=== PATIENT | female | born 1995 | race Caucasian/White ===

== ENCOUNTER 2019-10-14 15:06 | Emergency (ER) | payer SELFPAY ==
[2019-10-14 15:08] VITALS: BP 133/72; PULSE 118; RESP 18; TEMP 36.7; O2SAT 98; BMI 23.8
[2019-10-14 15:41] LABS: Bacteria 0 SEEN /hpf (None Seen); Mucous, Urine 0 SEEN /hpf (<or=2+); Red Blood Cells-Urine 0 SEEN /hpf (0-5)
[2019-10-14 15:45] LABS: Color, Urine Yellow (Yellow); Glucose, Dipstick Normal (Normal); Ketone-Dipstick Negative (Negative); Leukocyte Esterase-Dipstick Negative /ul (Negative); Nitrite-Dipstick Negative (Negative); Occult Blood-Urine Negative /ul (Negative); Protein-Dipstick Negative (Negative); Urine Bilirubin Dipstick Negative (Negative); Urine Clarity Clear (Clear); Urine Urobilinogen Normal (Normal)
[2019-10-14 16:00] LABS: Squamous Epithelial Cells - UA 0-5 SEEN /hpf (5-10); White Blood Cells 0-5 SEEN /hpf (0-5)
--- NOTE | 2019-10-14 16:02 | ED.RN ---
PATIENT STATES THAT SHE HAS TO LEAVE. THIS NURSE ENCOURAGED THE PATIENT TO STAY AND PATIENT STATES SHE HAD A FAMILY EMERGENCY. MD NOTIFIED PATIENT LEFT ED.
--- NOTE | 2019-10-14 16:19 | ED.DCSUM_ITS ---
History of Present Illness Chief Complaint: Complaint Informant: Patient Narrative: Patient presenting for evaluation secondary to dysuria. Patient states that she has been having burning when she urinates over the course of the last 3 to 4 days. She reports that she feels that it may be started after she was in a [place]. Patient was concerned because her boyfriend is having similar symptoms. She denies any vaginal bleeding or discharge. She denies any pelvic pain. She denies any flank pain. Patient denies any fevers nausea or vomiting. Patient states that the pain really is only present when she urinates. Patient does report that she had a past history of an STI. She reports that she does not think that she is although she is sexually active and does not use control. Review of systems otherwise negative. Past Medical History - Allergies and Home Meds Allergies/Adverse Reactions: Allergies amoxicillin [Amoxicillin] Allergy (Verified 10/14/19 15:10) Swelling Primary Care Physician: Care Physician,No Primary [Primary Care Provider] - Prior records reviewed: Yes Past Medical History: None Smoking Status: Current every day smoker Alcohol: None Drugs: None Review of Systems All systems negative except as indicated General: Denies: Chills, Fever, Sweats Eyes: Denies: Visual changes - bilaterally, Diplopia ENT: Denies: Rhinorrhea, Sore throat Cardiovascular: Denies: Chest pain, Palpitations Respiratory: Denies: Dyspnea, Cough, Dyspnea on exertion Gastrointestinal: Denies: Abdominal pain, Nausea, Vomiting, Diarrhea, Melena, Hematochezia Genitourinary: Reports: Dysuria Musculoskeletal: Denies: Back pain, Extremity Pain Skin: Denies: Rash, Wounds Neurological: Denies: Headache, Weakness, Numbness Physical Exam Vital Signs/Narrative: Vital Signs Temp Pulse Resp BP Pulse Ox 10/14/19 15:08 98.1 F 118 H 18 133/72 H 98 Inital Vital Signs reviewed: Yes General: Well nourished, Well developed Head: Normocephalic, Atraumatic Eyes: Perrl, EOMI ENT: Moist mucous membranes, No rhinorrhea Neck: Supple, Nontender Cardiovascular: Regular rhythm, No murmurs, Tachycardia Respiratory: No distress, CTA bilaterally, Chest nontender Abdomen: Soft, Nontender, Nondistended, Normal bowel sounds Back: Nontender, Normal Inspection Extremities: Nontender, No edema Skin: Normal color, No rash Neurological: Alert, Oriented x3, Cranial nerves II-XII grossly intact, Normal Strength, Normal Sensation Psychological: Normal affect Diagnostic/Tx/Re-eval Laboratory Data 10/14/19 15:37 Urine Color Yellow Urine Clarity Clear Urine pH 6.0 Ur Specific [place] 1.020 Urine Protein Negative Urine Glucose (UA) Normal Urine Ketones Negative Urine Occult Blood Negative Urine Nitrite Negative Urine Bilirubin Negative Urine Urobilinogen Normal Ur Leukocyte Esterase Negative Urine RBC 0 SEEN Urine WBC 0-5 SEEN Ur Squamous Epith Cells 0-5 SEEN Urine Bacteria 0 SEEN Urine Mucus 0 SEEN - Medical Decision/Diagnostic Studies Patient presented secondary to a sensation of vaginal burning. She has benign physical exam other than some mild tachycardia. Urinalysis was found to be negative, urine was sent for GC and chlamydia. I informed the patient that as both she and her boyfriend are having similar symptoms, this potentially could be associated with a sexually transmitted infection and I recommended a pelvic exam. Prior to being able to perform the pelvic exam I saw the patient leaving the emergency department, and she informed me my mom has an emergency. Patient eloped from the emergency department prior to the completion of her work-up. ED Disposition - Plan for ED Patient: Disposition: Against Medical Advice Diagnosis: Dysuria Referrals: Care Physician,No Primary [Primary Care Provider] -
[2019-10-14 17:51] LABS: Chlamydia Trachomatis by PCR Negative (Negative); Neisserai gonorrhoeae by PCR Negative (Negative); Probe Check PASS; Sample Adequacy Control PASS; Specimen Processing Control PASS
== END 2019-10-14 16:02 | disposition left against medical advice (07) ==
LOC: ED 16:14
PROVIDERS: Emergency Provider Emergency Medicine
DX: R30.0 Dysuria (principal); F17.200 Nicotine dependence, unspecified, uncomplicated; Z53.29 Procedure and treatment not carried out because of patient's decision for other reasons
CPT/HCPCS: 81001; 87491; 87591; 99281; 99282

== ENCOUNTER 2019-12-19 14:28 | Emergency (ER) | payer SELFPAY ==
[2019-12-19 14:30] VITALS: BP 147/100; PULSE 99; RESP 16; TEMP 36.7; O2SAT 100; BMI 25.0
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
[2019-12-19] MEDS: Ibuprofen 600 MG Tablet PO (15:08)
[2019-12-19] MEDS: Dicyclomine 10 MG Capsule 20 MG PO (15:09)
[2019-12-19 15:15] LABS: Bacteria 0 SEEN /hpf (None Seen); Mucous, Urine 0 SEEN /hpf (<or=2+); Red Blood Cells-Urine 0 SEEN /hpf (0-5); Squamous Epithelial Cells - UA 0 SEEN /hpf (5-10); White Blood Cells 0 SEEN /hpf (0-5)
[2019-12-19 15:19] LABS: Color, Urine Yellow (Yellow); Glucose, Dipstick Normal (Normal); Ketone-Dipstick Negative (Negative); Leukocyte Esterase-Dipstick Negative /ul (Negative); Nitrite-Dipstick Negative (Negative); Occult Blood-Urine Negative /ul (Negative); Protein-Dipstick Negative (Negative); Urine Bilirubin Dipstick Negative (Negative); Urine Clarity Clear (Clear); Urine Urobilinogen Normal (Normal)
[2019-12-19 15:23] LABS: Internal QC Validated? YES +Cl - CLEAR BKGD; Pregnancy, Urine Negative Negative
== END 2019-12-19 15:11 | disposition home or self-care (01) ==
PROVIDERS: Emergency Provider Emergency Medicine
DX: R10.30 Lower abdominal pain, unspecified (principal); N92.6 Irregular menstruation, unspecified; F17.200 Nicotine dependence, unspecified, uncomplicated
CPT/HCPCS: 81001; 81025

== ENCOUNTER 2020-11-01 17:45 | Outpatient (REF) | payer SELFPAY ==
[2020-11-01 17:46] VITALS: BP 138/90; PULSE 96; RESP 16; TEMP 36.5; O2SAT 99; BMI 27.6
--- NOTE | 2020-11-01 17:55 | EKG12_ITS ---
Test Reason : Blood Pressure : / mmHG Vent. Rate : 090 BPM Atrial Rate : 090 BPM P-R Int : 132 ms QRS Dur : 088 ms QT Int : 362 ms P-R-T Axes : 056 054 047 degrees QTc Int : 442 ms Normal sinus rhythm Normal ECG Confirmed by ELVIN HAN, ANA ([id number]), news copy editor VAN GUERRERO ([id number]) on 11/02/2020 11:23:32 AM Referred By: [facility] Confirmed By:ANA OCONNOR MD
--- NOTE | 2020-11-01 17:55 | RAD_ITS ---
INDICATION: ingestion of razor blade EXAMINATION/TECHNIQUE: X-RAY - XR Chest 1 View COMPARISON: None. FINDINGS: The lungs are clear. The cardiomediastinal silhouette is unremarkable. No pleural effusion or pneumothorax. No acute osseous abnormalities. RAD/Chest 1 View (Portable) IMPRESSION: No radiodense foreign bodies seen. Electronically Signed: Bobby Franco MD at 18:56 EDT Tel , Service support ,
--- NOTE | 2020-11-01 17:55 | EX.ED.DYSGE1 ---
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 She states she did not wrap it in anything. She did this as a suicide attempt. She states that she is depressed and feels alone. She is currently in the custody of the [facility]'s department. PFSH PFS Home Medications No Known/Unobtainable [No Known Home Medications] 09/30/13 [History Last Taken Unknown] Allergy/AdvReac Type Severity Reaction Status Date / Time amoxicillin [Amoxicillin] Allergy Swelling Verified 11/01/20 17:46 Social History (Updated 11/01/20 @ 17:[address] Maxim Domínguez, DO) Smoking Status: Current every day smoker tobacco type: cigarettes substance use type: does not use ROS ROS ED Constitutional Constitutional ED: Denies chills or weight loss Eyes Eyes: Denies change in vision or diplopia ENT ENT ED: Denies ear pain, rhinorrhea or sore throat Cardiovascular Cardiovascular: Denies chest pain, orthopnea, palpitations or racing heartbeat Respiratory/Chest Respiratory/Chest: Denies cough, dyspnea or orthopnea Gastrointestinal Gastrointestinal: Denies abdominal pain, diarrhea, nausea or vomiting Genitourinary Genitourinary ED: Denies dysuria, hematuria or urinary frequency Musculoskeletal Musculoskeletal: Denies arthralgias or myalgias Integumentary Denies abscess or rash Neurologic Neurologic: Denies headache(s) or weakness Psychiatric Psychiatric: Reports depression, hopelessness, suicidal ideation and suicidal thoughts; Denies anxiety, auditory hallucinations, hallucinations or homicidal ideation Endocrine Endocrinology: Denies polydipsia, polyphagia or polyuria Allergic/Immunologic Allergic/Immunologic ED: Denies mouth swelling, tongue swelling or urticaria EXAM Physical Exam Const Vital Signs: 11/01/20 17:46 Temperature 97.7 F L Temperature Source Temporal Pulse Rate 96 Respiratory Rate 16 Blood Pressure 138/90 H Blood Pressure Mean 106 Pulse Ox 99 Oxygen Delivery Method Room Air Positive well nourished and well developed General Appearance ED: well developed HEENT Reports normocephalic, head/scalp atraumatic and moist mucous membranes Eyes PERRL and EOMs intact bilaterally Neck no lymphadenopathy, supple and no JVD Resp normal respiratory effort and clear to auscultation bilaterally Cardio regular rate, regular rhythm and no murmurs GI normal to inspection, nondistended, normoactive bowel sounds and non-tender Palpation: soft Back/Spine no CVA tenderness and normal ROM Extremity normal to inspection General Extremety ED: Negative for edema General Extremity: Negative for edema Neuro oriented x3 and CN's II-XII intact bilaterally Sensorium / Orientation: alert Motor Exam: strength 5/5 throughout Psych mental status grossly normal Psych Narrative: Patient admits to suicidal ideation Mood & Affect: depressed; Negative for tearful Skin no rashes or lesions noted and no wounds MDM MDM MDM Narrative Medical decision making narrative: My interpretation of the plain films of the chest x-ray is no acute process. No foreign body seen. My interpretation of the single view portable abdominal film is razor blade probably in the small bowel in the left lower quadrant of the abdomen. After contacting multiple hospitals and being turned down due to lack of bed availability Paulina has accepted to their emergency room. She is under pink slip. Lab Data Attestation: I reviewed the patient's lab results. Labs: Laboratory Results - last 24 hr 11/01/20 11/01/20 11/01/20 17:06 17:06 17:06 WBC 10.7 RBC 4.98 Hgb 14.7 Hct 44.9 MCV 90.2 MCH 29.5 MCHC 32.7 RDW Std Deviation 39.5 RDW Coeff of Scotty 12.1 Plt Count 312 MPV 9.0 Immature Gran % (Auto) 0.600 Neut % (Auto) 71.8 H Lymph % (Auto) 20.6 [place] % (Auto) 5.5 Eos % (Auto) 0.8 Baso % (Auto) 0.7 Absolute Neuts (auto) 7.7 Absolute Lymphs (auto) 2.21 Nucleated RBC % 0 Sodium 140 Potassium 4.1 Chloride 106 Carbon Dioxide 28.0 Anion Gap 6 BUN 15 Creatinine 0.80 Estim Creat Clear Calc 84.28 Est GFR (MDRD) Af Amer 111 Est GFR (MDRD) Non-Af 92 BUN/Creatinine Ratio 18.7 Glucose 89 Calcium 9.1 Total Bilirubin 0.20 AST 13 L ALT 27 Alkaline Phosphatase 102 Total Protein 7.7 Albumin 3.7 Globulin 4.0 Albumin/Globulin Ratio 0.9 Serum , Qual Urine Opiates Screen Urine Methadone Screen Ur Barbiturates Screen Ur Phencyclidine Scrn Ur Amphetamines Screen U Methamphetamin-MDMA U Benzodiazepines Scrn Urine Cocaine Screen U Cannabinoids Screen Ur Drug Screen Comment Ethyl Alcohol < 3.0 11/01/20 11/01/20 17:06 18:35 WBC RBC Hgb Hct MCV MCH MCHC RDW Std Deviation RDW Coeff of Scotty Plt Count MPV Immature Gran % (Auto) Neut % (Auto) Lymph % (Auto) [place] % (Auto) Eos % (Auto) Baso % (Auto) Absolute Neuts (auto) Absolute Lymphs (auto) Nucleated RBC % Sodium Potassium Chloride Carbon Dioxide Anion Gap BUN Creatinine Estim Creat Clear Calc Est GFR (MDRD) Af Amer Est GFR (MDRD) Non-Af BUN/Creatinine Ratio Glucose Calcium Total Bilirubin AST ALT Alkaline Phosphatase Total Protein Albumin Globulin Albumin/Globulin Ratio Serum , Qual NEGATIVE Urine Opiates Screen NEGATIVE Urine Methadone Screen NEGATIVE Ur Barbiturates Screen NEGATIVE Ur Phencyclidine Scrn NEGATIVE Ur Amphetamines Screen NEGATIVE U Methamphetamin-MDMA NEGATIVE U Benzodiazepines Scrn NEGATIVE Urine Cocaine Screen NEGATIVE U Cannabinoids Screen NEGATIVE Ur Drug Screen Comment Ethyl Alcohol Radiography Diagnostic Testing: Radiology Impression Chest X-Ray 11/01/20 17:55 IMPRESSION: No radiodense foreign bodies seen. Electronically Signed: Bobby Franco MD at 18:56 EDT Tel , Service support , KUB X-Ray 11/01/20 18:05 IMPRESSION: Non-obstructive bowel gas pattern. Radiodense foreign body in the left lower quadrant, likely in large or small bowel. at 1607 Reported and signed by: Raghavendra Schultz MD Electronically Signed: Raghavendra Schultz MD at 18:56 EDT Tel , Service support , Discharge Plan Triage Chief Complaint: Suicidal ED Provider: Maxim Domínguez Dx/Rx/DC Orders Clinical Impression: Suicide attempt, Foreign body ingestion Prescriptions: No Action No Known Home Medications RF: 0 Primary Care Provider: Care Physician,No Primary Referrals: Care Physician,No Primary [Primary Care Provider] - Disposition Disposition: Acute Care Hospital Discharge Location: [facility]
--- NOTE | 2020-11-01 18:05 | RAD_ITS ---
HISTORY: ingestion razor blade EXAMINATION/TECHNIQUE: XR Abdomen 1 View: COMPARISON: None FINDINGS: LINES AND TUBES: None. BOWEL GAS PATTERN: Non-obstructive. No bowel or stomach distention. FREE AIR: Not assessed on a single supine view. ORGANOMEGALY: Not seen. CALCIFICATIONS: No abnormal calcifications observed. LOWER CHEST: No acute pathology. BONES AND SOFT TISSUES: No acute pathology. 1.9 cm rectangular radiodense foreign body projects over the left iliac wing. RAD/Abdomen Single View IMPRESSION: Non-obstructive bowel gas pattern. Radiodense foreign body in the left lower quadrant, likely in large or small bowel. at 1857 Reported and signed by: Raghavendra Schultz MD Electronically Signed: Raghavendra Schultz MD at 18:56 EDT Tel , Service support ,
[2020-11-01 18:13] LABS: Absolute Lymphocyte Count 2.21 X10^3/uL (0.83-4.51); Absolute Neutrophil Count 7.7 X10^3/uL (2.0-7.7); Basophil# 0.07 X10^3/uL; Basophil% 0.7 % (0-1); Eosinophil# 0.09 X10^3/uL; Eosinophils% 0.8 % (0-5); Hematocrit 44.9 % (37-47); Hemoglobin 14.7 g/dL (12.0-15.0); Lymphocyte # 2.21 X10^3/ul (0.83-4.51); Lymphocyte % 20.6 % (19-41); Mean Corp Hgb Conc 32.7 g/dL (32-36); Mean Corpuscular Hgb 29.5 pg (27.0-32.0); Mean Corpuscular Volume 90.2 fL (81-99); Monocyte# 0.59 X10^3/uL; Monocyte% 5.5 % (0-10); NRBC Flagged by Analyzer 0 % (0-5); Neutrophil # 7.71 X10^3/uL (2.7-7.7); Neutrophil % 71.8 % (47-70); Platelet Count 312 K/mm3 (150-450); RBC Distribution Width CV 12.1 % (11.6-14.6); RBC Distribution Width SD 39.5 fl (35.1-43.9); Red Blood Count 4.98 M/mm3 (4.2-5.4); White Blood Count 10.7 K/mm3 (4.4-11.0)
[2020-11-01 18:25] LABS: Internal QC Validated? YES +Cl - CLEAR BKGD; Pregnancy, Serum, hCG Quali. NEGATIVE Negative
[2020-11-01 18:29] LABS: ALB/GLOB Ratio 0.9 RATIO (0.9-2.4); AST(SGOT) 13 U/L (15-37); Alanine Aminotransfer ALT/SGPT 27 U/L (13-56); Albumin, Serum 3.7 g/dL (3.2-5.0); Alkaline Phosphatase 102 U/L (45-117); Anion Gap 6 (5-15); BUN 15 mg/dL (7-18); BUN/Creat Ratio 18.7 RATIO (10-20); Calcium,Total 9.1 mg/dL (8.5-10.1); Chloride 106 mmol/L (98-107); EST Glomerular Filtration Rate 92 mL/min (>60); Est Glom Filt Rate - Afr Amer 111 mL/min (>60); Estimated Creatinine Clearance 84.28 ml/min; Glucose 89 mg/dL (74-106); Potassium 4.1 mmol/L (3.5-5.1); Protein, Total 7.7 g/dL (6.4-8.2); Sodium Level 140 mmol/L (136-145)
[2020-11-01 18:47] LABS: Alcohol, Blood (Medical)-Serum < 3.0 mg/dL
[2020-11-01 18:51] LABS: Amphetamine Urine VISTA NEGATIVE (<1000 ng/mL); Barbiturate Urine VISTA NEGATIVE (< 200 ng/mL); Benzodiazepine Urine VISTA NEGATIVE (< 200 ng/mL); Cocaine Urine VISTA NEGATIVE (< 300 ng/mL); Ecstacy Urine VISTA NEGATIVE (< 500 ng/mL); Methadone Urine VISTA NEGATIVE (< 300 ng/mL); PCP Urine VISTA NEGATIVE (< 25 ng/mL); THC Urine VISTA NEGATIVE (< 50 ng/mL); Vista UDS pH Range 6
[2020-11-01 20:11] VITALS: BP 125/93; PULSE 100; RESP 20; TEMP 36.6; O2SAT 99
--- NOTE | 2020-11-01 20:12 | ED.RN ---
Addendum entered by Deja Alvarez 11/01/20 20:13: CORRECTION, PT IS TRANSFERRED TO [facility]. Original Note: PT RELEASED ON [facility]DONEZ. DEPUTIES WILL NOT FOLLOW PT TO . PT IS AWARE OF HER GUIDELINES AND WHAT TO DO AFTER RELEASE.
== END 2020-11-01 20:45 | disposition short-term general hospital (02) ==
LOC: EDREF 17:45
PROVIDERS: Visit Provider Emergency Medicine
DX: T18.9XXA Foreign body of alimentary tract, part unspecified, initial encounter (principal); T14.91XA Suicide attempt, initial encounter; X58.XXXA Exposure to other specified factors, initial encounter; Y93.9 Activity, unspecified; Y92.9 Unspecified place or not applicable; F32.9 Major depressive disorder, single episode, unspecified; F17.210 Nicotine dependence, cigarettes, uncomplicated
CPT/HCPCS: 36415; 71045; 74018; 80053; 80307; 82077; 84703; 85025; 87426; 93005